=== PATIENT | male | born 1960 | race Caucasian/White ===

== ENCOUNTER 2021-11-21 07:33 | Outpatient (CLI) | payer OTHER, SELFPAY ==
--- NOTE | ~2021-11-21 | PE_ITS ---
EXAMINATION: PET skull to mid thigh DATE: 11/21/2021 10:08 INDICATION: Cancer of distal third of esophagus. TECHNIQUE: Blood glucose level was 113 mg/dL. 10.764 mCi of 18-fluorodeoxyglucose (18-FDG) was admini stered i.v. Low dose computed tomography (CT) images were acquired from the base of the brain to the proximal thighs for attenuation correction and anatomic localization. Automated exposure control was employed. Dose-length product (DLP) was 432 mGy-cm. Positron emission tomography (PET) images were ac quired in the same distribution. COMPARISON: None FINDINGS: Head/neck: There is increased activity in the major salivary glands, oral cavity, pharynx, and glotti s without abnormal CT correlate, likely physiologic. There are no pathologically enlarged lymph nodes . Chest: There is moderate emphysema. There is a 4 mm nodule in right upper lobe without increased acti vity, likely benign. There is mild atelectasis bilaterally. No pleural effusion. There is a right int ernal jugular port with tip in right atrium. Cardiomegaly is noted. There is a small pericardial effu lily. There are no pathologically enlarged lymph nodes. Maximum SUV measures 2.1 in distal esophagus without abnormal CT correlate. Abdomen/pelvis/proximal thighs: There is moderate intrahepatic bile duct dilatation with pneumobilia. A metal biliary stent is noted. There are changes of cholecystectomy. The spleen, pancreas, and righ t adrenal gland are normal. There is a 13 mm mass in left adrenal gland measuring low-attenuation wit hout increased activity, consistent with an adenoma. The kidneys are normal. There are no dilated loo ps of bowel. The appendix is normal. There are no pathologically enlarged lymph nodes. There is a par aumbilical portacaval shunt. There is no free intraperitoneal fluid. There is no osseous malignancy. IMPRESSION: 1. 4 mm pulmonary nodule without increased activity, likely benign. 2. Small pericardial effusion. Reviewed, dictated and finalized at location A. [employer]
[2021-11-21 07:59] LABS: Glucose Point of Care 113 mg/dl (65-105)
== END 2021-11-21 07:34 | disposition home or self-care (01) ==
LOC: ANHIMG 07:40
PROVIDERS: Visit Provider Internal Medicine Hematology & Oncology
DX: C15.5 Malignant neoplasm of lower third of esophagus (principal); R91.1 Solitary pulmonary nodule; J90 Pleural effusion, not elsewhere classified
CPT/HCPCS: 78815; A9552

== ENCOUNTER 2022-01-01 13:14 | Outpatient (CLI) | payer OTHER, SELFPAY ==
--- NOTE | 2022-01-01 | ECHO_ITS ---
Patient Info Name: Tera Torres Age: 61 years : 1960 Gender: Male Ht: 67 in Wt: 153 lbs BSA: 1.82 m2 HR: 83 bpm BP: 143 / 89 mmHg Heart Rhythm: Sinus Rhythm Technical Quality: Fair Exam Date: 01/01/2022 2:30 PM Exam Location: [facility] Patient Status: Outpatient Admit Date: 01/01/2022 Staff Ordering Physician: Candido Saldivar MD [employer] Technician: Rosalba Moore RDCS Attending Provider: Candido Saldivar MD Referring Physician: Janna GORMAN; Exam Type: CA echo doppler color flow Study Info Indications - CA OF DISTAL 3RD OF ESOPHAGUS Complete two-dimensional, color flow and Doppler transthoracic echocardiogram is performed. Summary 1. Complete two-dimensional, color flow and Doppler transthoracic echocardiogram is performed. 2. Left ventricular chamber dimension is moderately enlarged. 3. Basal to mid segments of LV are hypokinetic suggestive of takotsubo cardiomyopathy. 4. Left ventricular systolic function is severely reduced, estimated at 30-35%. 5. The left ventricular diastolic function is grade I diastolic dysfunction. 6. E/e' 20 is elevated. 7. Global longitudinal strain is abnormal at -12.1%. 8. Left atrial chamber dimension is mildly enlarged. 9. There is mild aortic valve sclerosis. 10. There is mild mitral valve regurgitation. 11. There is trace tricuspid valve regurgitation. 12. No pulmonary hypertension, estimated pulmonary arterial systolic pressure is 29 mmHg. Left Ventricle E/e' 20 is elevated. Global longitudinal strain is abnormal at -12.1%. Basal to mid segments of LV are hypokinetic suggestive of takotsubo cardiomyopathy. Left ventricular chamber dimension is moderately enlarged. Left ventricular systolic function is severely reduced, estimated at 30-35%. The left ventricular diastolic function is grade I diastolic dysfunction. Right Ventricle Right ventricular systolic function is normal and with normal TAPSE 1.9 cm. Right ventricular chamber dimension is normal. Left Atria Left atrial chamber dimension is mildly enlarged. Right Atria Right atrial chamber dimension is normal. Aortic Valve The aortic valve is trileaflet. There is mild aortic valve sclerosis. There is no aortic valve stenosis. There is no aortic valve regurgitation. Pulmonic Valve There is no pulmonic regurgitation. Mitral Valve There is no mitral valve stenosis. There is mild mitral valve regurgitation. Tricuspid Valve There is trace tricuspid valve regurgitation. No pulmonary hypertension, estimated pulmonary arterial systolic pressure is 29 mmHg. Pericardium/Pleural There is no pericardial effusion. Inferior Vena Cava Normal inferior vena cava with >50% collapse upon inspiration consistent with normal right atrial pressure, 5 mmHg. Aorta The aortic root size at the sinus of Valsalva is normal. Left Ventricular Outflow Tract Name Value Normal LVOT 2D LVOT Diameter 2.1 cm LVOT Doppler LVOT Peak Gradient 4 mmHg LVOT Mean Gradient 2 mmHg LVOT VTI 17 cm
[2022-01-01 14:41] LABS: Basophils Percent Auto 0.6 % (0.2-1.2); Eosinophils Absolute Auto 0.2 K/mm3 (0-0.3); Eosinophils Percent Auto 2.8 % (0-4.4); Hematocrit 38.9 % (42.0-52.0); Immature Granulocyte Absolute 0.02 K/mm3 (0.00-0.031); Immature Granulocyte Percent A 0.3 % (0-0.5); Lymphocytes Percent Auto 37.1 % (18.3-44.2); Mean Corpuscular HGB Conc 33.4 g/dl (32-36); Mean Corpuscular Hemoglobin 30.4 pg (26-34); Mean Corpuscular Volume 90.9 fl (80-100); Mean Platelet Volume 12.1 fl (7.4-10.4); Monocytes Absolute Auto 0.6 K/mm3 (0.1-0.6); Monocytes Percent Auto 9.1 % (2.6-8.5); Neutrophils Absolute Auto 3.4 K/mm3 (1.3-6.7); Neutrophils Percent Auto 50.1 % (45.5-73.1); Platelet Count Result 110 k/mm3 (150-375); Red Blood Count 4.28 M/mm3 (4.6-6.20); Red Cell Distribution Width 12.9 % (11.5-14.5); White Blood Count 6.7 K/mm3 (4.5-10.0)
[2022-01-01 14:50] LABS: Platelet Estimate Decreased (Adequate)
[2022-01-01 14:51] LABS: Atypical Lymphocytes Present; Ovalocytes 1+ (NORMAL)
[2022-01-01 15:46] LABS: Alanine Aminotransferase 17 U/L (4-50); Albumin Level 3.9 g/dL (3.5-5.1); Alkaline Phosphatase 144 U/L (38-126); Anion Gap 6 mmol/L (8-16); Aspartate Amino Transferase 30 U/L (17-59); Bilirubin,Total 0.3 mg/dL (0.2-1.3); Blood Urea Nitrogen 16 mg/dL (9-20); Calcium 8.7 mg/dL (8.4-10.2); Carbon Dioxide 25 mmol/L (22-30); Chloride 106 mmol/L (98-107); Estimated Glomerular Filt Rate > 60; Glucose 105 mg/dL (65-110); Potassium 3.5 mmol/L (3.4-5.0); Sodium 137 mmol/L (137-145)
== END 2022-01-01 13:15 | disposition home or self-care (01) ==
LOC: ANHCARD 13:26
PROVIDERS: Visit Provider Internal Medicine Hematology & Oncology
DX: C15.5 Malignant neoplasm of lower third of esophagus (principal); I34.0 Nonrheumatic mitral (valve) insufficiency; I35.1 Nonrheumatic aortic (valve) insufficiency
CPT/HCPCS: 36415; 80053; 85025; 93306